=== PATIENT | female | born 1960 | race Caucasian/White ===

== ENCOUNTER 2021-05-26 21:16 | Emergency (ER) | payer OTHER, SELFPAY ==
[2021-05-26 21:23] VITALS: BP 149/87; PULSE 86; RESP 18; TEMP 36.6; O2SAT 100; BMI 29.9
--- NOTE | 2021-05-26 22:25 | ED.GENADULT ---
HPI - General Adult General Chief complaint: Animal Bite Stated complaint: spider bite Time Seen by Provider: 05/26/21 22:05 Source: patient and family (Spouse) Mode of arrival: ambulatory Limitations: no limitations History of Present Illness HPI narrative: 60-year-old female came in for evaluation of insect bite to the left foot. Patient went into her dark bedroom felt sting on the left foot patient was not able to see what was it, patient after the notice swelling and throbbing pain to the left foot on the dorsum aspect. No throat swelling, no difficulty breathing. Related Data Previous Rx's Medication Instructions Recorded doxycycline hyclate 100 mg capsule 100 mg PO BID #14 cap 05/26/21 Allergies Allergy/AdvReac Type Severity Reaction Status Date / Time No Known Allergies Allergy Unverified 05/26/21 22:06 Review of Systems Review of Systems: All other systems are reviewed and are negative Constitutional: Reports as per HPI and Reports no additional constitutional complaints Eyes: Reports as per HPI and Reports no additional eye complaints Reports system reviewed and no additional complaints, except as documented Cardiovascular: Reports as per HPI and Reports no additional cardiovascular complaints Respiratory: Reports as per HPI and Reports no additional respiratory complaints Gastrointestinal: Reports as per HPI and Reports no additional gastrointestinal complaints Genitourinary: Reports no additional female genitourinary complaints Musculoskeletal: Reports no additional musculoskeletal complaints Skin/Breast: Reports system reviewed and no additional complaints, except as docu Psychiatric: Reports no additional psychiatric complaints Endocrine: Reports no additional endocrine complaints Hematologic/Lymphatic: Reports no additional hematologic/lymphatic complaints Allergic/Immunologic: Reports no additional allergic/immunologic complaints Reports system reviewed and no additional complaints, except as documented and Reports Abnormal speech present [facility] Past Medical History Medical History No known health problems Social History Social History Advance Directives: No Advance Directives Information Provided: Yes Patient : No Physical Exam Vital Signs: Vital Signs: Last Vital Signs Temp 97.8 F 05/26/21 21:23 Pulse 86 05/26/21 21:23 Resp 18 05/26/21 21:23 BP 149/87 H 05/26/21 21:23 Pulse Ox 100 05/26/21 21:23 Body Mass Index 29.9 Vital signs have been reviewed as appeared to be correct. Blood pressure normal. Heart rate normal. Respiration rate normal. Temperature normal. Oxygen saturation normal. Appearance: Alert. Oriented X3. No acute distress. Head: Normal external exam. Normocephalic. Atraumatic. No Barry signs noted. No raccoon eyes noted Eyes: PERRLA. EOMI. Conjunctiva and sclera normal. Eyelids normal. ENT: TM's Normal. Pharynx normal. Uvula midline. Moist mucous membranes. No trismus noted. No drooling noted. No muffled voice noted. Neck: Normal inspection. Neck supple. FROM. No adenopathy. Thyroid Normal. No meningeal signs. No neck mass noted. CVS: Normal heart rate and rhythm. Heart sound normal. No murmurs noted. Pulses normal throughout. Respiratory: No respiratory distress. Painless inspiration. Breath sounds normal. No wheezes/rales/rhonchi noted. Chest nontender. No accessory muscle usage noted or decreased air movement noted. Abdomen: Soft and nontender. Bowel sounds normal in all 4 quadrants. No distention noted. No organomegaly noted. No visible injury noted. Back: No CVA tenderness. Full range of motion noted. Skin: Skin warm and dry. Normal skin color. Normal skin turgor. No rashes/lesions/lacerations noted. Extremities: 5 x 5 cm area of swelling, tenderness, mild redness on the dorsum of the left foot, no fluctuation, no pus. Neuro: Oriented X 3. No motor deficit. No sensory deficit. Reflexes normal. Course Course Course Narrative: Assessment and plan. 60-year-old female with been by unknown likely insect in her house, patient sustained immediate reaction of swelling, redness, hotness. No systemic allergic reaction, no upper way swelling or difficulty breathing. As discussed with the patient will start on antibiotic empirically, Benadryl, 1 dose of steroid to help swelling and NSAIDs p.r.n.. Discharge Plan Discharge Clinical Impression: Insect bite Qualifiers: Encounter type: initial encounter Site of insect bite: foot Laterality: left Qualified Code(s): S90.862A - Insect bite (nonvenomous), left foot, initial encounter Patient Disposition: Home, Self-Care Instructions: Insect Bite or Sting (ED) Prescriptions: New doxycycline hyclate 100 mg capsule 100 mg PO BID Qty: 14 RF: 0 Referrals: Brennan Francois MD [Primary Care Provider] - 2 days Stand Alone Forms: Work/School Release
[2021-05-26] MEDS: predniSONE 20 MG TABLET 40 MG PO (23:24)
[2021-05-26] MEDS: Ibuprofen 600 MG TABLET PO (23:24)
[2021-05-26] MEDS: diphenhydrAMINE HCL 25 MG TABLET PO (23:24)
== END 2021-05-26 23:43 | disposition home or self-care (01) ==
PROVIDERS: Emergency Provider Emergency Medicine; PCP Internal Medicine
DX: S90.862A Insect bite (nonvenomous), left foot, initial encounter (principal); M79.672 Pain in left foot; W57.XXXA Bitten or stung by nonvenomous insect and other nonvenomous arthropods, initial encounter; Y93.9 Activity, unspecified; Y92.9 Unspecified place or not applicable; Y99.9 Unspecified external cause status
CPT/HCPCS: 99284; Q0163

== ENCOUNTER 2021-06-09 08:15 | Emergency (ER) | payer OTHER, SELFPAY ==
[2021-06-09 08:31] VITALS: BP 159/57; PULSE 74; RESP 16; TEMP 36.9; O2SAT 96; BMI 30.7
[2021-06-09 09:08] VITALS: BP 159/63; PULSE 61; RESP 15; TEMP 37.3; O2SAT 95
--- NOTE | 2021-06-09 09:25 | ED_ITS ---
HPI - Skin/Abscess/Foreign Bdy General Chief complaint: Skin/Abscess/Foreign Body Stated complaint: insect bite Time Seen by Provider: 06/09/21 08:53 Source: patient Mode of arrival: ambulatory Limitations: no limitations History of Present Illness HPI narrative: 60-year-old female presenting to the ED with complaints of swelling to her left dorsal aspect of her foot after she was possibly bit by a an insect in her house approximately 2 weeks ago. She was seen here and treated for cellulitis infection with doxycycline for 2 weeks and she reports she finished entire course of antibiotics although she is still having pain and some swelling and she believes she may need another antibiotic. She denies any fevers, chills any numbness/tingling any new injuries or any falls or any rashes. She denies any history of MRSA. Related Data Previous Rx's Medication Instructions Recorded doxycycline hyclate 100 mg capsule 100 mg PO BID #14 cap 05/26/21 ibuprofen 800 mg tablet 800 mg PO Q8H PRN #14 tab 06/09/21 Allergies Allergy/AdvReac Type Severity Reaction Status Date / Time No Known Allergies Allergy Verified 06/09/21 08:47 Review of Systems Review of Systems: Constitutional : No Fever, No Chills, Cardiovascular : No Chest Pain, No SOB Respiratory : No Dyspnea Gastrointestinal : No abdominal pain Musculoskeletal : No Joint Swelling Skin : positive skin swelling, No Foreign bodies, No rash, No surrounding erythe ma, No lacerations Neuro : No Weakness, No Numbness/tingling Psych : No SI/HI/thoughts of self injury Yes all other systems are reviewed and are negative [facility] Past Medical History Attestation statement: The following information was validated with the patient. Medical History No known health problems Social History Social History Advance Directives: No Advance Directives Information Provided: No Physical Exam Vital Signs: Vital Signs: Last Vital Signs Temp 99.1 F 06/09/21 09:08 Pulse 61 06/09/21 09:08 Resp 15 06/09/21 09:08 BP 159/63 H 06/09/21 09:08 Pulse Ox 95 06/09/21 09:08 Body Mass Index 30.7 vital signs have been reviewed as normal and appeared to be correct. Blood pressure normal. Heart rate normal. Respiration rate normal. Temperature normal. Oxygen saturation normal. Appearance: Alert. Oriented X3. No acute distress. Head: Normal external exam. Normocephalic. Atraumatic. Eyes: PERRLA. EOMI. Conjunctiva and sclera normal. Eyelids normal. ENT: Pharynx normal. Uvula midline. Moist mucous membranes. Neck: Normal inspection. Neck supple. FROM. No adenopathy. No meningeal signs. CVS: Normal heart rate and rhythm. Heart sound normal. Pulses normal throughout. No murmurs/rales/gallops. Respiratory: No respiratory distress. Painless inspiration. Breath sounds normal. No wheezes/rales/rhonchi noted. Chest nontender. No accessory muscle usage noted or decreased air movement noted. Back: Full range of motion noted. No rashes/lesion/induration/fluctuance or signs of infection noted. Skin: Skin warm and dry. Normal skin color. Normal skin turgor. No rashes/lesions/lacerations noted. Extremities: To the left dorsal aspect of the foot patient has mild soft tissue swelling. No obvious deformities/induration/foreign bodies/rashes/lesions noted. No calf tenderness is noted. No lower extremity edema. Extremities exhibit normal range of motion. Extremities nontender. Neuro: Oriented X 3. No motor deficit. No sensory deficit. Reflexes normal. Normal steady gait. No focal neuro deficits noted. Vascular: + radial pulses/+ 2 distal pedal pulses/+2 dorsalis pedis b/l. Normal cap refill. No cyanosis noted to upper extremity nails and lower extremity toes nails. Course Course Course Narrative: 60-year-old female presenting to the ED with left foot dorsal aspect soft tissue swelling. We did a needle aspiration and only bloody discharge came out. Patient tolerated procedure well. This was sterile. No complications. Not consistent with an abscess although it is consistent with a hematoma. Will DC home with pressure dressing and Motrin instructions return if any new or worsening symptoms to follow up with primary care provider. Patient understands agrees with this plan. MDM - Skin/Abscess/Foreign Bdy Medical Records Attestation: I reviewed the patient's medical records. Discharge Plan Discharge Clinical Impression: Hematoma Patient Disposition: Home, Self-Care Instructions: Hematoma (ED) Prescriptions: New ibuprofen 800 mg tablet 800 mg PO Q8H PRN (Reason: pain) Qty: 14 RF: 0 No Action doxycycline hyclate 100 mg capsule 100 mg PO BID Qty: 14 RF: 0 Referrals: Brennan Francois MD [Primary Care Provider] - 2 days Stand Alone Forms: Work/School Release Print Language: Hungarian
== END 2021-06-09 09:40 | disposition home or self-care (01) ==
PROVIDERS: Emergency Provider Internal Medicine; PCP Internal Medicine
DX: S90.32XA Contusion of left foot, initial encounter (principal); X58.XXXA Exposure to other specified factors, initial encounter; R22.42 Localized swelling, mass and lump, left lower limb; Y93.9 Activity, unspecified; Y92.9 Unspecified place or not applicable; Y99.9 Unspecified external cause status
CPT/HCPCS: 10140; 99283; 99284